=== PATIENT | male | born 1980 | race Caucasian/White ===

== ENCOUNTER 2016-12-27 09:19 | Inpatient (IN) | payer MEDICARE, OTHER ==
[~2016-12-27] VITALS: Ht 188 cm; Wt 63.6 kg
--- NOTE | ~2016-12-27 | HP ---
History And Physical [place] [id number] [facility] [place]. [address] NAME: MARKY FUNK : 84 STATUS : ADM IN PAT#: [id number] AGE: 36 ADM/REG DATE : 12/27/16 MR#: [id number] REPORT SERV DATE: 12/27/16 DICTATED BY: RONNY WINSLOW DATE: 12/27/16 REPORT STATUS : Draft TRANSCRIBED BY: MODDamon DATE: 12/27/16 DATE OF ADMISSION: 12/27/2016 POINT OF ENTRY: [facility] Emergency Department. CHIEF COMPLAINT: Altered mental status, combativeness, agitation. HISTORY OF PRESENT ILLNESS: Mr. Funk is a 36-year-old gentleman with history of seizure disorder, anxiety, panic attacks, and schizophrenia, who was brought to the emergency room today by EMS for reports of slurred speech and altered mental status. When EMS arrived at his house, he reportedly was combative and altered. He was in the same condition when he arrived in the emergency department. Therefore, he received 2 mg of IM Ativan with 25 mg of IM Benadryl with dramatic improvement in the patient's combativeness and agitation. However, the patient is now profoundly sedated, encephalopathic, and is unable to provide me any history. All my history is obtained from discussion with patient's mother over the phone at [phone]. Her name is Sarahy Funk. Mother states that she has been in a long term for the past 10 days. His father has been hospitalized at [facility] for the past few days. She states that he does come to visit her regularly at her nursing facility. While both parents have been hospitalized, nobody has been at home over the last few days to see how the patient has been doing on a regular basis. Mother is very concerned that he has lost a considerable amount of weight over the past few months. He is not eating. She reports that he has lots of trouble with hiatal hernia and acid reflux and has had considerable amount of nausea and vomiting. Reportedly, he sees somebody at [facility] for this issue. Mother also reports that he called her this morning very tearful, somewhat agitated, and with some slurred speech. He told her that he did not sleep at all the night before. Given these concerns, she recommended he call 911. Reportedly, his sister came to the house to see how he was doing, also found him somewhat encephalopathic with slurred speech and in coherent, and agreed with calling 911. Mother states that he currently is on high doses of Seroquel a "related medicine of Dilantin as well as Thorazine" and reportedly on Ativan 12 mg daily for his anxiety and panic attacks. She states he has been out of the Ativan for the past few weeks. Per discussion with Pharmacy, the [place] Controlled Substance Database does not have any controlled substance prescriptions. The controlled substance query for [place] only shows a five-day prescription for [place] 5-325 in August and then going back further, some Ativan prescriptions from February 2016, but nothing more recent. The [facility] prescription database query does reveal Requip, perphenazine, Seroquel, and Dilantin, but again no other medications that the patient's mother is mentioning including the Thorazine and Ativan. History And Physical [address] [address] NAME: MARKY FUNK : 84 STATUS : ADM IN PAT#: [id number] AGE: 36 ADM/REG DATE : 12/27/16 MR#: [id number] REPORT SERV DATE: 12/27/16 DICTATED BY: RONNY WINSLOW DATE: 12/27/16 REPORT STATUS : Draft TRANSCRIBED BY: THANIA DATE: 12/27/16 Initial evaluation in the emergency department again refer combativeness and agitation requiring intramuscular Ativan and Benadryl with dramatic improvement in the patient's agitation, but now very sedated, encephalopathic. Labs are unremarkable. Ammonia level was negative. Chest x-ray was clear. CT scan of the brain was negative. Urine drug screen notable for tricyclics and cannabinoids, but negative for opioids or benzodiazepines. His serum drug screen was negative. Urinalysis without evidence of infection. The patient was subsequently admitted to the Hospitalist Service for further evaluation management, but not before a certificate of need was completed by Dr. Mckeon of the Emergency Department. REVIEW OF SYSTEMS: Unable to be obtained other than what I discussed with the patient's mother over the phone secondary to the patient's altered mental status. PREVIOUS MEDICAL HISTORY: 1. Seizure disorder. 2. Schizophrenia with history of psychotic episodes. 3. Anxiety and panic attacks. 4. GERD and hiatal hernia. 5. Restless legs syndrome. PAST SURGICAL HISTORY: Unknown. ALLERGIES: REPORTEDLY TO [employer] AND [place], WHICH CAUSES RESPIRATORY DISTRESS. HOME MEDICATIONS: Again, this is an incomplete list, but was completed by querying the Controlled Substance Database for both [place] and [place] as well as [employer] database and with direct conversation with his pharmacy in [place] includes; 1. Perphenazine 8 mg t.i.d. 2. Phenytoin mg at bedtime. 3. Seroquel 600 mg at bedtime. 4. Requip 2 mg at bedtime. SOCIAL HISTORY: Reportedly, lives with his parents. Recently moved from [place] about a year or two ago. Has yet to establish care with a neurologist or a psychiatrist here in the community. Tobacco, alcohol, and illicit status is unknown. FAMILY HISTORY: Also unknown secondary to the patient's altered mental status. LABS AND IMAGIN. White count 7.5, hemoglobin is 14.5, hematocrit is 43.5, platelets count 235. 2. Sodium is 141, potassium 3.7, chloride 109, carbon dioxide 26, BUN 14, creatinine 0.93, glucose is 154. 3. Ammonia level is 20. 4. Urinalysis: Spec gravity is 1.027, hazy, but no evidence of any infection. Urine drug screen positive cannabinoids and TCAs, but otherwise negative. 5. Serum drug screen negative. 6. CT scan of the brain. The original CT scan of the brain was severely degraded by History And Physical [address] [address] NAME: MARKY FUNK : 84 STATUS : ADM IN PAT#: [id number] AGE: 36 ADM/REG DATE : 12/27/16 MR#: [id number] REPORT SERV DATE: 12/27/16 DICTATED BY: RONNY WINSLOW DATE: 12/27/16 REPORT STATUS : Draft TRANSCRIBED BY: THANIA DATE: 12/27/16 severe motion artifact; however, on repeat it just showed no acute intracranial abnormality. 7. Chest x-ray per my review shows no acute cardiopulmonary abnormality. PHYSICAL EXAMINATION: VITAL SIGNS: Temperature is 98.9 degrees Fahrenheit, pulse is 99, respirations 16, sating 97% on room air, blood pressure 120/90. GENERAL: The patient is sedated and lethargic, will awaken to verbal stimuli, but quickly falls back asleep. He has very thick slurred speech, but tries to answer questions appropriately. Moves all extremities well. HEENT: Atraumatic and normocephalic. Moist mucous membranes. Pupils are equal, round, reactive to light and accommodation. Extraocular eye movements are intact. No scleral icterus. NECK: No jugular venous distention. No carotid bruits. CARDIAC: Regular rate and rhythm. No murmurs or gallops. Normal S1, S2. LUNGS: Clear to auscultation bilaterally. ABDOMEN: Soft, nontender, nondistended. Good bowel sounds. EXTREMITIES: Thin and cachectic, but warm and well perfused. No cyanosis, clubbing, or edema. SKIN: Warm and dry. PSYCH: Sedated and lethargic. No evidence of hallucinations, delusions, or psychosis at this time. NEURO: Will awaken to verbal stimuli, quickly falls back to asleep. He can tell me his first name, where he is at, as well as the month and year that he was born. Again, he has a very slurred, thick answers. Moves all extremities well. Follows simple commands. Gait was not assessed. ASSESSMENT: Mr. Funk is a 36-year-old gentleman, who is brought to the hospital by EMS for reports of combativeness, altered mental status, and slurred speech, and is being admitted for the same. PROBLEM LIST: 1. Acute encephalopathy with agitation. 2. Dysarthria. 3. History of schizophrenia. 4. History of seizure disorder. 5. History of weight loss and cachexia. 6. History of GERD with hiatal hernia. PLAN: 1. Acute encephalopathy with agitation and delirium, unclear etiology at this time. It is unclear whether or not the patient is taking his medications for his schizophrenia. Urine drug screen is notable for cannabinoids in addition to tricyclics. Mother states he has not taken his Ativan for the past few weeks. However, we cannot confirm this as Controlled Substance Database does not show any Ativan prescription for almost [address] scan of the brain was unremarkable. We will admit the patient to Hospitalist Service. Consult both Neurology as well as Psychiatry for assistance. History And Physical [address] [place]. [address] NAME: MARKY FUNK : 84 STATUS : ADM IN PAT#: [id number] AGE: 36 ADM/REG DATE : 12/27/16 MR#: [id number] REPORT SERV DATE: 12/27/16 DICTATED BY: RONNY WINSLOW DATE: 12/27/16 REPORT STATUS : Draft TRANSCRIBED BY: THANIA DATE: 12/27/16 2. History of schizophrenia. We will continue the patient's home perphenazine. We will dose-reduce his Seroquel given his sedation and lethargy with p.r.n. Zyprexa for breakthrough agitation. 3. History of seizure disorder. No history of seizures at home per mother, but again she has not been at home recently. We will check a Dilantin level. Continue the patient's home Dilantin as well as IV Ativan for breakthrough seizures. 4. History of weight loss with cachexia, unclear etiology at this time. The patient is very thin and cachectic appearing. His labs are otherwise unremarkable. Checking pre- albumin level as well as comprehensive metabolic panel. Nutrition consultation. 5. DVT prophylaxis. Lovenox subcu. CODE STATUS: The patient wished to be full code. MAR/THANIA Ronny Winslow MD / [id number] CC: MD CLAIRE Garcia MD
--- NOTE | ~2016-12-27 | DS ---
Discharge Summary [facility] [address] [place]. [address] NAME: MARKY FUNK : 84 STATUS : DIS IN PAT#: [id number] AGE: 36 ADM/REG DATE : 12/27/16 MR#: [id number] REPORT SERV DATE: 12/29/16 DICTATED BY: JR. JAY WILLIAM JOHN DATE: 12/28/16 REPORT STATUS : Draft TRANSCRIBED BY: THANIA DATE: 12/28/16 ADMISSION DATE: 12/27/2016 DISCHARGE DATE: 12/28/2016 DISCHARGE DIAGNOSES: 1. Acute encephalopathy with agitation. 2. History of schizoaffective disorder. 3. History of seizure disorder. 4. History of weight loss. OPERATIONS/PROCEDURES/TREATMENTS: 1. Evaluation by crisis response team. 2. CT of the head showed no acute abnormalities. 3. Chest x-ray done 12/27/2016 showed no acute abnormalities. 4. Urine drug screen was positive for cannabinoids and tricyclic antidepressants. DISCHARGE MEDICATIONS: 1. Trilafon 8 mg three times a day. 2. Dilantin 300 mg at bedtime. 3. Seroquel 600 mg at bedtime. 4. Requip 2 mg at bedtime. HOSPITAL COURSE: The patient was a 36-year-old gentleman, who presented to the emergency room on 12/27 via EMS for slurred speech and altered mental status. When EMS arrived, the patient was combative and altered, and was saying when he got to the emergency department, he was given 2 mg of IM Ativan, 25 mg of IM Benadryl, and became sedated. All history was therefore from his mother, Sarahy Funk. Mother stated that she had been in long-term for the past 10 days and his father is also hospitalized at [place] [facility] for the past few days. He comes to visit regularly at the long-term, however, no one has been in home to watch him while both parents were in medical facilities. Mother was concerned that he had lost considerable amount of weight in the past few months and was not eating and was having a lot of trouble with a hiatal hernia. By his mother's report, he was tearful, agitated and had slurred speech on the phone and did not sleep the prior night, therefore, she called 911. For initial exam and laboratory, please see Dr. Zuniga's excellent dictated history and physical. The patient, when I saw him on 12/28, was alert and oriented to person, place, and time. He had good insight into his illness and his treatments. He displayed no evidence of psychosis. Denied suicidal or homicidal ideation and wanted to be discharged. I bargained with the patient to remain until the Crisis Response team could talk with him. The Crisis Response team was kind enough to urgently come. They also felt there was no evidence of psychosis, disorganization, homicidal or suicidal ideation. The patient desires discharge and I have no medical reason to keep him. The patient will be discharged home today 12/28/2016. He agrees to follow [facility]. For discharge exam and laboratory, please see daily progress note. Discharge Summary [address] [address] NAME: MARKY FUNK : 84 STATUS : DIS IN PAT#: [id number] AGE: 36 ADM/REG DATE : 12/27/16 MR#: [id number] REPORT SERV DATE: 12/29/16 DICTATED BY: JR. JAY WILLIAM JOHN DATE: 12/28/16 REPORT STATUS : Draft TRANSCRIBED BY: THANIA DATE: 12/28/16 DISCHARGE DIET: Regular. ACTIVITY: As tolerated. This discharge took approximately 100 minutes for patient encounter, coordination of care, and documentation. WJF/THANIA Beto Jay Jr, MD / [id number] CC: Beto Jay Jr, MD MCCOY, MICHAEL ROBERT
[2016-12-27 10:40] LABS: BASOPHILS 0.5 %; BASOPHILS ABSOLUTE 0.04 10/3/uL (0.0-0.16); EOSINOPHILS 1.7 %; EOSINOPHILS ABSOLUTE 0.13 10/3/uL (0.0-0.53); LYMPHOCYTES 22.7 %; LYMPHOCYTES ABSOLUTE 1.71 10/3/uL (0.67-4.30); MEAN CORPUSCULAR HEMOGLOB 30.5 pg (26.0-34.0); MEAN CORPUSCULAR VOLUME 91.6 fL (80-100); MEAN PLATELET VOLUME 9.7 fL (9.2-13.0); MONOCYTES 5.7 %; MONOCYTES ABSOLUTE 0.43 10/3/uL (0.21-1.20); NEUTROPHILS 69.4 %; NEUTROPHILS ABSOLUTE 5.22 10/3/uL (2.02-8.40); PLATELET COUNT 235 10/3/uL (150-400); RBC DISTRIBUTION WIDTH 13.7 % (12.0-16.0); RED CELL COUNT 4.75 10/6/uL (4.7-6.1)
[2016-12-27 10:41] LABS: HEMATOCRIT 43.5 % (40.0-51.0); HEMOGLOBIN 14.5 g/dL (13.6-17.8); MANUAL DIFF NO %; MEAN CORPUS HGB CONC 33.3 g/dL (32.0-36.0); WHITE BLOOD CELLS 7.5 10/3/uL (4.5-10.5)
[2016-12-27 10:57] LABS: ALBUMIN 4.2 G/DL (3.5-5.0); BUN (BLOOD UREA NITROGEN) 14 MG/DL (6-23); CHLORIDE, SERUM 109 MMOL/L (96-112); CO2 (CARBON DIOXIDE) 26 MMOL/L (24-34); CREATININE 0.93 MG/DL (0.70-1.30); DIRECT BILIRUBIN 0.2 MG/DL (0.0-0.4); GFR AFRICAN AMERICAN 124 ML/MIN (>=60); GFR NON AFRICAN AMERICAN 107 ML/MIN (>=60); INDIRECT BILIRUBIN(NOT ORDER) 0.5 MG/DL (0.1-0.9); POTASSIUM, SERUM 3.7 MMOL/L (3.5-5.3); SALICYLATE 2.9 MG/DL (-); SGOT(AST) 18 U/L (5-40); SGPT(ALT) 30 U/L (5-65); SODIUM, SERUM 141 MMOL/L (135-148); TOTAL BILIRUBIN 0.7 MG/DL (0-1.2); TOTAL PROTEIN 7.2 G/DL (6.0-8.5); TROPONIN I <0.02 NG/ML (<0.05)
[2016-12-27 10:58] LABS: ACETAMINOPHEN LEVEL (TYLENOL) < 2.0 MCG/ML (10.0-20.0); ALKALINE PHOSPHATASE 90 U/L (45-117); CALCIUM, SERUM 8.4 MG/DL (8.5-10.4); GLUCOSE, SERUM 154 MG/DL (60-99)
[2016-12-27 11:38] LABS: ASCORBIC ACID (UR NOT ORDER) NEG (NEG); BILIRUBIN, URINE NEGATIVE (NEG); ER URINALYSIS TAT 0 Hrs 09 Mins; KETONE, URINE NEGATIVE (NEG); LEUKOCYTE ESTERASE(NOT OR NEG (NEG); NITRITE (URINE) NEG (NEG); WBC (NOT ORDERED) (RFLEX) 1 (0-5)
[2016-12-27 11:52] LABS: AMPHETAMINES (NOT ORD) NEG (NEG); BARBITURATES (NOT ORDERED NEG (NEG); BENZODIAZEPINES (NOT ORD) NEG (NEG); CANNABINOIDS (THC) POS (NEG); COCAINE (NOT ORDERED) NEG (NEG); OPIATES NEG (NEG); PHENCYCLIDINE(PCP) NEG (NEG); TRICYCLICS POS (NEG)
[2016-12-27] MEDS ORDERED: REQUIP2 PO (12:44)
[2016-12-27] MEDS ORDERED: SEROQUEL1C PO (12:45)
[2016-12-27] MEDS ORDERED: PERPHENAZINE8 MG PO (12:46)
[2016-12-27] MEDS ORDERED: D100 PO (12:46)
[2016-12-27] MEDS ORDERED: *UNABLE3 (12:49)
[2016-12-27 20:16] LABS: FREE T4 1.36 NG/DL (0.76-1.46); PREALBUMIN 27.1 MG/DL (17.0-43.0); ULTRASENSITIVE TSH 0.531 MCIU/ML (0.358-3.740)
[2016-12-27 20:26] LABS: DILANTIN (PHENYTOIN) 2.3 MCG/ML (10.0-20.0)
[2016-12-28 05:09] LABS: BASOPHILS 0.3 %; BASOPHILS ABSOLUTE 0.03 10/3/uL (0.0-0.16); EOSINOPHILS 1.6 %; EOSINOPHILS ABSOLUTE 0.14 10/3/uL (0.0-0.53); HEMATOCRIT 43.1 % (40.0-51.0); HEMOGLOBIN 14.6 g/dL (13.6-17.8); IMMATURE GRANULOCYTES 0.1 %; IMMATURE GRANULOCYTES ABSOLUTE 0.01 10/3/uL (0.0-0.11); LYMPHOCYTES 31.6 %; LYMPHOCYTES ABSOLUTE 2.74 10/3/uL (0.67-4.30); MEAN CORPUS HGB CONC 33.9 g/dL (32.0-36.0); MEAN CORPUSCULAR HEMOGLOB 30.9 pg (26.0-34.0); MEAN CORPUSCULAR VOLUME 91.1 fL (80-100); MEAN PLATELET VOLUME 10.3 fL (9.2-13.0); MONOCYTES 6.9 %; NEUTROPHILS 59.5 %; NEUTROPHILS ABSOLUTE 5.14 10/3/uL (2.02-8.40); PLATELET COUNT 241 10/3/uL (150-400); RBC DISTRIBUTION WIDTH 13.6 % (12.0-16.0); RED CELL COUNT 4.73 10/6/uL (4.7-6.1); WHITE BLOOD CELLS 8.7 10/3/uL (4.5-10.5)
[2016-12-28 05:10] LABS: MANUAL DIFF NO %
[2016-12-28 05:20] LABS: BUN (BLOOD UREA NITROGEN) 15 MG/DL (6-23); CALCIUM, SERUM 8.9 MG/DL (8.5-10.4); CHLORIDE, SERUM 110 MMOL/L (96-112); CO2 (CARBON DIOXIDE) 26 MMOL/L (24-34); CREATININE 0.81 MG/DL (0.70-1.30); GFR AFRICAN AMERICAN 134 ML/MIN (>=60); GFR NON AFRICAN AMERICAN 116 ML/MIN (>=60); GLUCOSE, SERUM 85 MG/DL (60-99); POTASSIUM, SERUM 3.8 MMOL/L (3.5-5.3); SODIUM, SERUM 144 MMOL/L (135-148)
== END 2016-12-28 16:02 | disposition home or self-care (01) | DRG 71 ==
LOC: ER 09:19 → 6NO 15:41 → 7NO 15:41 → 6NO 16:19
PROVIDERS: Internal Medicine; Student in an Organized Health Care Education/Training Program
DX: G93.40 Encephalopathy, unspecified (principal); Z68.1 Body mass index [BMI] 19.9 or less, adult; R64 Cachexia; F05 Delirium due to known physiological condition; F20.9 Schizophrenia, unspecified; G40.909 Epilepsy, unspecified, not intractable, without status epilepticus; F41.0 Panic disorder [episodic paroxysmal anxiety]; K21.9 Gastro-esophageal reflux disease without esophagitis; K44.9 Diaphragmatic hernia without obstruction or gangrene; G25.81 Restless legs syndrome
CPT/HCPCS: 70450; 71010; 80048; 80076; 80185; 80305; 81001; 82140; 83690; 84134; 84439; 84443; 84484; 85025; 93005; A9270-GY; C9113; G0480; J1200